=== PATIENT | female | born 1975 | race Caucasian/White ===

== ENCOUNTER → 2020-10-13 08:20 | Outpatient (BNVA) | payer OTHER, SELFPAY | PROVIDERS: Visit Provider Emergency Medicine Emergency Medical Services | DX: Z20.828 Contact with and (suspected) exposure to other viral communicable diseases (principal) | CPT/HCPCS: 87426 ==

== ENCOUNTER → 2021-08-04 14:33 | Outpatient (BNVA) | payer OTHER, SELFPAY | PROVIDERS: Referring Provider Nurse Practitioner; Visit Provider Internal Medicine | DX: E07.9 Disorder of thyroid, unspecified (principal); E03.8 Other specified hypothyroidism; R13.10 Dysphagia, unspecified; E06.3 Autoimmune thyroiditis; F17.210 Nicotine dependence, cigarettes, uncomplicated | CPT/HCPCS: 99204 ==

== ENCOUNTER → 2021-08-08 14:20 | Outpatient (BNVA) | payer OTHER, SELFPAY | PROVIDERS: Visit Provider Internal Medicine | DX: E07.9 Disorder of thyroid, unspecified (principal); E03.8 Other specified hypothyroidism; E06.3 Autoimmune thyroiditis | CPT/HCPCS: 82784; 83516; 84439; 84443; 84480 ==

== ENCOUNTER → 2023-06-06 15:25 | Outpatient (BNVA) | payer OTHER, SELFPAY | PROVIDERS: Referring Provider Nurse Practitioner; Visit Provider Internal Medicine | DX: E07.9 Disorder of thyroid, unspecified (principal); R13.10 Dysphagia, unspecified; E03.8 Other specified hypothyroidism; E06.3 Autoimmune thyroiditis; Z79.890 Hormone replacement therapy | CPT/HCPCS: 36415; 84439; 84443; 84480; 99214 ==

== ENCOUNTER 2023-08-24 12:10 | Outpatient (CLI) | payer OTHER, SELFPAY ==
[2023-08-24 13:15] LABS: Free T4 Free Thyroxine 0.27 ng/dL (0.82-1.77); Thyroid Stimulating Hormone 65.26 uIU/mL (0.27-4.20)
[2023-08-25 09:05] LABS: T3 Total 73 ng/dL (76-181)
== END 2023-08-24 12:11 | disposition home or self-care (01) ==
PROVIDERS: PCP Nurse Practitioner; Visit Provider Internal Medicine
DX: E06.3 Autoimmune thyroiditis (principal); E07.9 Disorder of thyroid, unspecified; R13.10 Dysphagia, unspecified
CPT/HCPCS: 36415; 84439; 84443; 84480

== ENCOUNTER 2023-09-07 12:15 | Outpatient (CLI) | payer OTHER, SELFPAY ==
[2023-09-07 13:24] LABS: Free T4 Free Thyroxine 0.35 ng/dL (0.82-1.77)
[2023-09-08 11:20] LABS: T3 Total 106 ng/dL (76-181)
== END 2023-09-07 12:16 | disposition home or self-care (01) ==
LOC: LAB 12:16
PROVIDERS: PCP Nurse Practitioner; Visit Provider Internal Medicine
DX: E03.8 Other specified hypothyroidism (principal); E06.3 Autoimmune thyroiditis
CPT/HCPCS: 36415; 84439; 84480